=== PATIENT | female | born 1955 | race Caucasian/White ===

== ENCOUNTER 2016-06-03 06:08 | Outpatient (CLI) | payer BC | END 2016-06-03 23:00 | LOC: LAB SRH 06:08 | DX: Z13.1 Encounter for screening for diabetes mellitus (principal); Z13.29 Encounter for screening for other suspected endocrine disorder; Z13.6 Encounter for screening for cardiovascular disorders | CPT/HCPCS: 90074; 90100; 91096; 91286; 92690; 93140; 95059 ==

== ENCOUNTER 2016-08-25 05:54 | Outpatient (CLI) | payer BC | END 2016-08-25 23:00 | LOC: LAB SRH 05:54 | DX: R73.09 Other abnormal glucose (principal); I10 Essential (primary) hypertension | CPT/HCPCS: 90074; 90100; 91286; 95059 ==